=== PATIENT | female | born 1950 ===

== ENCOUNTER 2023-03-30 11:00 | Inpatient (IN) | payer OTHER ==
[~2023-03-30] VITALS: Ht 157.5 cm; Wt 111.1 kg
[2023-03-30] MEDS ORDERED: ZESTRIL2.5 MG PO (13:14)
[2023-03-30] MEDS ORDERED: LANTUS (13:14)
[2023-03-30] MEDS ORDERED: PLAVIX75 MG PO (13:15)
[2023-03-30] MEDS ORDERED: PANTOPRAZOLE SO40 M2 PO (13:15)
[2023-03-30] MEDS ORDERED: GABAP PO (13:15)
[2023-03-30] MEDS ORDERED: OZEM PO (13:16)
[2023-03-30] MEDS ORDERED: GLIMEPIRIDE2 MG PO (13:16)
[2023-03-30] MEDS ORDERED: [UNRECOGNIZED DRUG - OTHER] PO (13:18)
[2023-04-03] MEDS ORDERED: FUROSEMIDE20 MG (08:08)
[2023-04-03] MEDS ORDERED: OZEMPIC0.25 MG/01 (08:09)
[2023-04-03] MEDS ORDERED: GABAPENTIN800 M1 (08:09)
[2023-04-03] MEDS ORDERED: ATORVASTATIN CA20 MG (08:09)
[2023-04-03] MEDS ORDERED: LETROZOLE2.5 MG (08:09)
[2023-04-03] MEDS ORDERED: VITAMIN D21250 MCG (08:09)
[2023-04-03] MEDS ORDERED: SERTRALINE HCL50 MG (08:09)
== END 2023-04-05 17:37 | DRG 469 ==
LOC: O/R 04-03 05:34 → SURG 04-03 07:00 → OB/GYN 04-03 11:26
PROVIDERS: ADMIT Orthopaedic Surgery; ATTEND Orthopaedic Surgery
PROC: 0SRC0JZ Replacement of Right Knee Joint with Synthetic Substitute, Open Approach (ICD-10-PCS; principal; 2023-04-03 07:00)
DX: M17.11 Unilateral primary osteoarthritis, right knee (principal); I26.99 Other pulmonary embolism without acute cor pulmonale; D62 Acute posthemorrhagic anemia; Z85.3 Personal history of malignant neoplasm of breast; Z85.528 Personal history of other malignant neoplasm of kidney; I10 Essential (primary) hypertension; Z20.822 Contact with and (suspected) exposure to COVID-19; E11.9 Type 2 diabetes mellitus without complications

== ENCOUNTER 2023-07-25 07:45 | Inpatient (IN) | payer OTHER ==
[~2023-07-25] VITALS: Ht 157.5 cm; Wt 108.9 kg
[~2023-07-25 07:45] MED LIST: ATORVASTATIN CA20 MG; FUROSEMIDE20 MG; GABAP PO; GABAPENTIN800 M1; GLIMEPIRIDE2 MG PO; LANTUS; LETROZOLE2.5 MG; OZEM PO; OZEMPIC0.25 MG/01; PANTOPRAZOLE SO40 M2 PO; PLAVIX75 MG PO; SERTRALINE HCL50 MG; VITAMIN D21250 MCG; ZESTRIL2.5 MG PO; [UNRECOGNIZED DRUG - OTHER] PO
[2023-07-25] MEDS ORDERED: FEMARA2.5 MG PO (07:53)
[2023-07-25] MEDS ORDERED: ZESTRIL2.5 MG PO (07:54)
[2023-07-25] MEDS ORDERED: LASIX20 MG PO (07:54)
[2023-07-25] MEDS ORDERED: OZEMPIC0.25 MG/02 (07:54)
[2023-07-25 08:19] LABS: HEMATOCRIT 35.6 % (36.0-45.00); HEMOGLOBIN 11.7 g/dL (12.0-15.00); MEAN CELL VOLUME 83.9 fL (80.00-100.00); MEAN CORPUSCULAR HEMOGLOBIN 27.7 pg (27.00-32.0); PLATELET COUNT 264 K/uL (150-450); RED BLOOD COUNT 4.24 M/uL (4.00-6.00); RED CELL DISTRIBUTION WIDTH 14.7 % (11.5-14.5)
[2023-07-25 08:28] LABS: URINE APPEARANCE Clear; URINE BILIRRUBIN Negative (NEGATIVE); URINE BLOOD Negative; URINE COLOR Yellow; URINE GLUCOSE Negative (NEGATIVE); URINE LEUKOCYTE Negative; URINE NITRATE Negative; URINE PROTEIN Negative (NEGATIVE); URINE UROBILINOGEN 0.2 E.U./dl
[2023-07-25 08:32] LABS: URINE BACTERIA 17.5 uL (0.0-1933)
[2023-07-25 08:41] LABS: URINE EPITHELIAL CELLS 0.7 uL (0.0-38.8); URINE RBC 0.2 uL (0.0-20.8)
[2023-07-25 08:57] LABS: PARTIAL THROMBOPLASTIN TIME 22.4 SECONDS (22.0-34.0); PROTHROMBIN TIME 10.5 SECONDS (9.0-11.5)
[2023-07-25 08:59] LABS: ALBUMIN 3.5 gm/dL (3.4-5.0); BILIRUBIN TOTAL 0.56 mg/dL (0.3-1.2); CALCIUM 9.3 mg/dL (8.5-10.1); CREATININE SERUM 1.21 mg/dL (0.55-1.02); GFR 43.74; GLOBULINA 3.7 G/DL (2.4-3.5); POTASSIUM 4.67 mEq/L (3.5-5.1); TOTAL PROTEIN 7.2 gm/dL (6.4-8.2)
[2023-08-01 06:22] LABS: HEMATOCRIT 32.3 % (36.0-45.00); HEMOGLOBIN 10.4 g/dL (12.0-15.00); MEAN CELL VOLUME 85.1 fL (80.00-100.00); MEAN CORPUSCULAR HEMOGLOBIN 27.4 pg (27.00-32.0); MEAN CORPUSCULAR HGB CONC 32.2 g/dl (32.0-36.0); PLATELET COUNT 224 K/uL (150-450); RED CELL DISTRIBUTION WIDTH 14.7 % (11.5-14.5)
[2023-08-02 11:07] LABS: CALCIUM 8.8 mg/dL (8.5-10.1); CREATININE SERUM 1.09 mg/dL (0.55-1.02); GFR 49.34; POTASSIUM 3.98 mEq/L (3.5-5.1)
[2023-08-02 12:15] LABS: HEMATOCRIT 32.1 % (36.0-45.00); HEMOGLOBIN 10.4 g/dL (12.0-15.00); MEAN CELL VOLUME 84.8 fL (80.00-100.00); MEAN CORPUSCULAR HEMOGLOBIN 27.3 pg (27.00-32.0); MEAN CORPUSCULAR HGB CONC 32.2 g/dl (32.0-36.0); PLATELET COUNT 235 K/uL (150-450); RED BLOOD COUNT 3.79 M/uL (4.00-6.00); RED CELL DISTRIBUTION WIDTH 14.7 % (11.5-14.5)
[2023-08-02] MEDS ORDERED: GABAPENTIN100 MG PO (12:28)
[2023-08-02] MEDS ORDERED: NORFLEX100MG PO (12:28)
[2023-08-02] MEDS ORDERED: XARELTO10 MG PO (12:29)
[2023-08-02] MEDS ORDERED: TRAMADOL HCL50 MG PO (12:30)
== END 2023-08-02 13:23 | disposition home or self-care (01) | DRG 470 ==
LOC: O/R 07-31 06:06 → SURG 07-31 07:45
PROVIDERS: Internal Medicine Geriatric Medicine; ADMIT Orthopaedic Surgery; ATTEND Orthopaedic Surgery
PROC: 0SRD0JZ Replacement of Left Knee Joint with Synthetic Substitute, Open Approach (ICD-10-PCS; principal; 2023-07-31 16:45)
DX: M17.12 Unilateral primary osteoarthritis, left knee (principal); D62 Acute posthemorrhagic anemia; M85.662 Other cyst of bone, left lower leg; I10 Essential (primary) hypertension

== ENCOUNTER 2024-01-16 07:44 | Outpatient (CLI) | payer OTHER ==
[~2024-01-16 07:44] MED LIST changes: +FEMARA2.5 MG PO; +GABAPENTIN100 MG PO; +LASIX20 MG PO; +NORFLEX100MG PO; +OZEMPIC0.25 MG/02; +TRAMADOL HCL50 MG PO; +XARELTO10 MG PO
== END 2024-01-16 07:46 | disposition home or self-care (01) ==
LOC: RAD 07:44
PROVIDERS: ATTEND Orthopaedic Surgery
DX: M25.562 Pain in left knee (principal)